=== PATIENT | female | born 1945 | race Caucasian/White ===

== ENCOUNTER 2024-10-06 16:16 | Emergency (ER) | payer MEDICARE ==
[2024-10-06] MEDS ORDERED: Acetaminophen 500 MG TAB ONE (16:21)
== END 2024-10-06 17:28 | disposition home or self-care (01) ==
LOC: MADERS 16:16
DX: S01.81XA Laceration without foreign body of other part of head, initial encounter (principal); S09.90XA Unspecified injury of head, initial encounter; I12.9 Hypertensive chronic kidney disease with stage 1 through stage 4 chronic kidney disease, or unspecified chronic kidney disease; N18.30 Chronic kidney disease, stage 3 unspecified; E78.5 Hyperlipidemia, unspecified; K21.9 Gastro-esophageal reflux disease without esophagitis; Z79.82 Long term (current) use of aspirin; Z79.899 Other long term (current) drug therapy; W06.XXXA Fall from bed, initial encounter
CPT/HCPCS: 12011; 70450; 72125